=== PATIENT | male | born 1930 | race Caucasian/White ===

== ENCOUNTER 2017-12-30 14:32 | Outpatient (CLI) | payer MEDICARE, BC | END 2017-12-30 23:59 | disposition home or self-care (01) | LOC: RAD 14:32 | PROVIDERS: ATTEND Otolaryngology | DX: R13.12 Dysphagia, oropharyngeal phase (principal); R13.14 Dysphagia, pharyngoesophageal phase; K21.9 Gastro-esophageal reflux disease without esophagitis; R49.0 Dysphonia; Z87.891 Personal history of nicotine dependence | CPT/HCPCS: 74230 ==

== ENCOUNTER 2021-09-19 11:56 | Inpatient (IN) | payer MEDICARE, BC ==
[~2021-09-19] VITALS: Ht 185.4 cm; Wt 81.8 kg
[2021-09-19 12:26] LABS: BASOPHILS # (AUTO) 0.1 X10'3 (0-0.2); BASOPHILS % (AUTO) 0.4 % (0-1); EOSINOPHILS # (AUTO) 0.1 X10'3 (0-0.9); EOSINOPHILS % (AUTO) 0.4 % (0-6); HEMATOCRIT 45.5 % (42.0-52.0); HEMOGLOBIN 15.2 g/dl (14.0-17.9); LYMPHOCYTES % (AUTO) 5.8 % (21-51); MEAN CORPUSCULAR HGB CONC 33.4 g/dL (33.0-36.5); MEAN CORPUSCULAR VOLUME 92.7 FL (78-98); MEAN PLATELET VOLUME 7.9 FL (7.4-10.4); MONOCYTES # (AUTO) 1.3 X10'3 (0-0.9); MONOCYTES % (AUTO) 7.7 % (2-12); NEUTROPHILS # (AUTO) 14.7 X10'3 (1.8-7.7); NEUTROPHILS % (AUTO) 85.7 % (42-75); PLATELET COUNT 215 X10'3 (140-440); RED BLOOD COUNT 4.91 X10'6 (4.70-6.10); RED CELL DISTRIBUTION WIDTH 14.9 % (11.5-14.5); WHITE BLOOD COUNT 17.1 X10'3 (4.5-11.0)
[2021-09-19 12:46] LABS: ALANINE AMINOTRANSFERASE 26 U/L (12-78); ALBUMIN 2.7 G/DL (3.4-5.0); ALBUMIN/GLOBULIN RATIO 0.6 (1.1-1.5); ALKALINE PHOSPHATASE 225 IU/L (46-116); ANION GAP 9 (8-16); ASPARTATE AMINO TRANSFERASE 36 U/L (10-37); BILIRUBIN,TOTAL 1.7 MG/DL (0.1-1.0); BLOOD UREA NITROGEN 30 MG/DL (7-18); BUN/CREATININE RATIO 28.3 (5.4-32.0); CALCIUM 9.4 MG/DL (8.5-10.1); CHLORIDE 110 MMOL/L (99-107); CREATININE 1.06 MG/DL (0.60-1.10); GLUCOSE 121 MG/DL (70-104); SODIUM 147 MMOL/L (135-145); TOTAL CARBON DIOXIDE 28.1 MMOL/L (24-32); TOTAL PROTEIN 7.5 G/DL (6.4-8.2); eGFR 66 ML/MIN
[2021-09-19 12:49] LABS: POTASSIUM 3.7 MMOL/L (3.5-5.1)
[2021-09-19] MEDS ORDERED: normal saline 1000ML IV soln IV ONE (12:50)
[2021-09-19] MEDS ORDERED: CefTRIAXone 2gm/D5W 50ml BAG 50 ML IV ONE (12:50)
[2021-09-19] MEDS ORDERED: OLANZapine **IM** 10 mg inj. IM ONE (13:30)
[2021-09-19] MEDS ORDERED: morphine 4 MG/ML inj SYRINge IV ONE (13:55)
--- NOTE | 2021-09-19 14:02 | NUR ---
Patient refused his Morphine ivp, stated he denied any pain. Brown jcainto made aware
[2021-09-19 14:03] LABS: CLARITY,URINE CLOUDY (Clear); COLOR,URINE YELLOW (Yellow); GLUCOSE, URINE NEGATIVE (Neg); KETONES,URINE NEGATIVE (Neg); LEUKOCYTE ESTERASE ,URINE TRACE (Neg); NITRITES, URINE NEGATIVE (Neg); OCCULT BLOOD,URINE TRACE-INTACT (Neg); PROTEIN,URINE TRACE mg/dl (Neg); UROBILINOGEN,URINE >=8.0 E.U/dL (0.2-1.0)
[2021-09-19 14:13] LABS: UA COLLECTION TYPE STRAIGHT CATH
[2021-09-19] MEDS ORDERED: magnesium 4gm in 100ml NS 100 ML IV PRN (14:25)
[2021-09-19] MEDS ORDERED: magnesium 2GM in 50ml NS 50 ML IV PRN (14:25)
[2021-09-19] MEDS ORDERED: acetaminophen 325mg tablet PO PRN (14:25)
[2021-09-19] MEDS ORDERED: ondansetron/PF 4mg/2ml inj IV PRN (14:25)
[2021-09-19] MEDS ORDERED: docusate sod 100mg capsule PO PRN (14:25)
[2021-09-19] MEDS ORDERED: POTASSIUM BICARB 20meq eff tab 20 MEQ TABLET.EFF PO PRN (14:25)
[2021-09-19 14:28] LABS: WBC,URINE TNTC /HPF (0-4)
[2021-09-19 14:29] LABS: BACTERIA,URINE 4+ /HPF (Neg); RBC,URINE 0-2 /HPF (0-2); WBC CLUMPS,URINE FEW /HPF (NEGATIVE)
[2021-09-19 14:30] LABS: SQUAMOUS EPITHELIAL CELL,UR FEW /LPF (FEW)
[2021-09-19] MEDS ORDERED: ziprasidone IM 20mg inj **IM only IM ONE (17:20)
[2021-09-19] MEDS: normal saline 1000ml 1,000 ML IV SCH (17:31)
[2021-09-19] MEDS ORDERED: quetiapine 100mg tablet PO STA (18:18)
[2021-09-19] MEDS: K and/or MAG REPLACEMENT MC SCH (20:00)
[2021-09-19] MEDS: enoxaparin 40mg/0.4ml syringe SQ SCH (20:29)
--- NOTE | 2021-09-19 22:08 | NUR ---
PT. O2 IS RANGING FROM 90-92%. TRIED TO APPLY NC, BUT PT. IS REFUSING. WILL TRY AGAIN.
[2021-09-20] MEDS: normal saline 1000ml 1,000 ML IV SCH ×2 (03:25→20:00)
--- NOTE | 2021-09-20 06:40 | NUR ---
Received report from Anushka in the ER.
[2021-09-20 06:52] VITALS: BP 124/70
--- NOTE | 2021-09-20 07:00 | NUR ---
Patient refuses MRSA swab. Patient is becoming agresive and agitated when MRSA swab was attempted.
[2021-09-20 07:58] LABS: BASOPHILS % (AUTO) 0.3 % (0-1); EOSINOPHILS % (AUTO) 0.3 % (0-6); HEMATOCRIT 44.7 % (42.0-52.0); HEMOGLOBIN 14.8 g/dl (14.0-17.9); LYMPHOCYTES # (AUTO) 0.7 X10'3 (1.1-4.8); LYMPHOCYTES % (AUTO) 5.3 % (21-51); MEAN CORPUSCULAR HEMOGLOBIN 30.6 PG (27.0-31.0); MEAN CORPUSCULAR VOLUME 92.7 FL (78-98); MONOCYTES # (AUTO) 0.9 X10'3 (0-0.9); MONOCYTES % (AUTO) 6.9 % (2-12); NEUTROPHILS # (AUTO) 11.9 X10'3 (1.8-7.7); NEUTROPHILS % (AUTO) 87.2 % (42-75); PLATELET COUNT 216 X10'3 (140-440); RED BLOOD COUNT 4.82 X10'6 (4.70-6.10); RED CELL DISTRIBUTION WIDTH 14.9 % (11.5-14.5); WHITE BLOOD COUNT 13.6 X10'3 (4.5-11.0)
[2021-09-20] MEDS: K and/or MAG REPLACEMENT MC SCH ×2 (08:00→19:52)
[2021-09-20] MEDS ORDERED: CefTRIAXone/D5W-Rocephin 1gm 50 ML IV SCH (08:00)
[2021-09-20 08:15] LABS: ALANINE AMINOTRANSFERASE 38 U/L (12-78); ALBUMIN 2.3 G/DL (3.4-5.0); ALBUMIN/GLOBULIN RATIO 0.5 (1.1-1.5); ALKALINE PHOSPHATASE 187 IU/L (46-116); ANION GAP 10 (8-16); ASPARTATE AMINO TRANSFERASE 32 U/L (10-37); BILIRUBIN,TOTAL 1.3 MG/DL (0.1-1.0); BLOOD UREA NITROGEN 24 MG/DL (7-18); CALCIUM 8.5 MG/DL (8.5-10.1); CHLORIDE 113 MMOL/L (99-107); CREATININE 0.75 MG/DL (0.60-1.10); GLUCOSE 98 MG/DL (70-104); MAGNESIUM 1.8 MG/DL (1.5-2.4); POTASSIUM 3.1 MMOL/L (3.5-5.1); SODIUM 148 MMOL/L (135-145); TOTAL CARBON DIOXIDE 25.4 MMOL/L (24-32); TOTAL PROTEIN 6.6 G/DL (6.4-8.2); eGFR > 90 ML/MIN
[2021-09-20] MEDS ORDERED: CARB1TAB23 PO (09:08)
[2021-09-20] MEDS ORDERED: RISP2TAB85 PO (09:08)
[2021-09-20] MEDS ORDERED: ESOM40CA54 PO (09:08)
[2021-09-20] MEDS ORDERED: POTA10TA21 PO (09:08)
[2021-09-20] MEDS ORDERED: [UNRECOGNIZED DRUG - OTHER] PO (09:08)
[2021-09-20] MEDS ORDERED: HYDR12.55 PO ×2 (09:08→15:24)
[2021-09-20] MEDS ORDERED: QUET-1 PO (09:08)
[2021-09-20] MEDS ORDERED: RISP0.5T65 PO (09:08)
[2021-09-20] MEDS ORDERED: ESZO2TAB31 PO (09:08)
[2021-09-20] MEDS: POTASSIUM BICARB 20meq eff tab 20 MEQ TABLET.EFF PO PRN ×2 (09:37→15:50)
[2021-09-20 10:00] VITALS: BP 95/59
--- NOTE | 2021-09-20 11:26 | NUR ---
Spoke with Britt Andrwes the patient's daughter who was able to provide some history for DART and also some history of the current illness. She states that patient has moved into [facility] 3 weeks ago (moved in August 31). On September 06 he started having "headaches and just being off the wall" according to Britt. He was sent to [facility] on September 06 then he was released because [facility] could not find anything, he went back to [facility] on September 16 then he was released. He came to [facility] this morning. The MD he currently sees (dr. Morel) told the family that he does have an infection. Daughter stated MD told her he has "yellow belly". Britt Hirsch daughter Antionette Torrey and LILLY
[2021-09-20] MEDS ORDERED: POTA-280 PO (15:15)
[2021-09-20] MEDS ORDERED: RISP1TAB98 PO (15:22)
[2021-09-20] MEDS ORDERED: ESZO1TAB13 PO (15:26)
[2021-09-20] MEDS: potassium CL 10mEq/100ml bag 100 ML IV PRN ×2 (16:01→20:27)
[2021-09-20 18:00] VITALS: BP 110/61
--- NOTE | 2021-09-20 18:40 | NUR ---
Britt the patient's daughter requested that we call [facility] to make sure that the list of medications we have is the same with what they have. 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 Contact persons there are Rosita and Marisa .
--- NOTE | 2021-09-20 18:45 | NUR ---
Patient in room ORTHO 4022. I have received report from GURPREET Hollis and had the opportunity to ask questions and assume patient care.
--- NOTE | 2021-09-20 19:08 | NUR ---
Problems reprioritized. Patient report given, questions answered & plan of care reviewed with HUSSAIN Flowers.
[2021-09-20] MEDS: enoxaparin 40mg/0.4ml syringe SQ SCH (20:00)
[2021-09-20] MEDS: carbidoba-levodopa 25-100mg tablet PO SCH (20:46)
[2021-09-20] MEDS: zolpidem 5mg tablet PO SCH (20:49)
[2021-09-20] MEDS: quetiapine 100mg tablet PO SCH (20:49)
[2021-09-20] MEDS: risperiDONE 0.5mg tablet PO SCH (20:51)
--- NOTE | 2021-09-20 21:00 | NUR ---
Problems reprioritized. Patient report given, questions answered & plan of care reviewed with GURPREET Garcia.
[2021-09-20 22:00] VITALS: BP 84/42
[2021-09-20 22:15] VITALS: BP 86/52
--- NOTE | 2021-09-20 22:19 | NUR ---
86/52 on left arm and lower on right arm so giving a 250ml bolus of saline per protocol.
[2021-09-20] MEDS ORDERED: normal saline 250ml IV soln 250 ML IV ONE (22:20)
[2021-09-20 22:30] VITALS: BP 92/57
--- NOTE | 2021-09-20 23:20 | NUR ---
Assumed care of patient at this time.
[2021-09-21] MEDS: potassium CL 10mEq/100ml bag 100 ML IV PRN ×8 (00:05→23:22)
[2021-09-21 02:00] VITALS: BP 154/66
[2021-09-21] MEDS: normal saline 1000ml 1,000 ML IV SCH ×3 (05:44→23:22)
[2021-09-21 06:00] VITALS: BP 118/76
--- NOTE | 2021-09-21 06:10 | NUR ---
Problems reprioritized. Patient report given, questions answered & plan of care reviewed with Adry Reyna RN.
--- NOTE | 2021-09-21 06:30 | NUR ---
Patient in room ORTHO 4022. I have received report from Radha and had the opportunity to ask questions and assume patient care.
[2021-09-21] MEDS: K and/or MAG REPLACEMENT MC SCH ×2 (08:00→20:00)
[2021-09-21 09:32] LABS: BASOPHILS # (AUTO) 0.1 X10'3 (0-0.2); BASOPHILS % (AUTO) 0.4 % (0-1); EOSINOPHILS # (AUTO) 0.2 X10'3 (0-0.9); EOSINOPHILS % (AUTO) 1.4 % (0-6); HEMATOCRIT 45.4 % (42.0-52.0); LYMPHOCYTES # (AUTO) 0.8 X10'3 (1.1-4.8); LYMPHOCYTES % (AUTO) 6.3 % (21-51); MEAN CORPUSCULAR VOLUME 93.8 FL (78-98); MEAN PLATELET VOLUME 8.3 FL (7.4-10.4); MONOCYTES # (AUTO) 0.9 X10'3 (0-0.9); MONOCYTES % (AUTO) 7.2 % (2-12); NEUTROPHILS # (AUTO) 10.3 X10'3 (1.8-7.7); NEUTROPHILS % (AUTO) 84.7 % (42-75); PLATELET COUNT 207 X10'3 (140-440); RED BLOOD COUNT 4.84 X10'6 (4.70-6.10); RED CELL DISTRIBUTION WIDTH 14.7 % (11.5-14.5); WHITE BLOOD COUNT 12.2 X10'3 (4.5-11.0)
[2021-09-21] MEDS: pantoprazole 40mg Tablet.DR PO SCH (09:48)
[2021-09-21] MEDS: carbidoba-levodopa 25-100mg tablet PO SCH ×2 (09:48→20:05)
[2021-09-21] MEDS: risperiDONE 0.5mg tablet PO SCH ×2 (09:48→20:06)
[2021-09-21 09:50] LABS: ALANINE AMINOTRANSFERASE 10 U/L (12-78); ALBUMIN 2.3 G/DL (3.4-5.0); ALBUMIN/GLOBULIN RATIO 0.5 (1.1-1.5); ALKALINE PHOSPHATASE 171 IU/L (46-116); ANION GAP 9 (8-16); ASPARTATE AMINO TRANSFERASE 32 U/L (10-37); BILIRUBIN,TOTAL 1.3 MG/DL (0.1-1.0); BLOOD UREA NITROGEN 19 MG/DL (7-18); BUN/CREATININE RATIO 28.4 (5.4-32.0); CALCIUM 8.6 MG/DL (8.5-10.1); CHLORIDE 114 MMOL/L (99-107); CREATININE 0.67 MG/DL (0.60-1.10); GLUCOSE 109 MG/DL (70-104); MAGNESIUM 1.7 MG/DL (1.5-2.4); POTASSIUM 3.4 MMOL/L (3.5-5.1); SODIUM 145 MMOL/L (135-145); TOTAL CARBON DIOXIDE 21.7 MMOL/L (24-32); TOTAL PROTEIN 6.5 G/DL (6.4-8.2); eGFR > 90 ML/MIN
[2021-09-21] MEDS: levoFLOXACIN-Levaquin 500mg/D5 100 ML IV SCH (10:05)
[2021-09-21 18:00] VITALS: BP 135/72
--- NOTE | 2021-09-21 18:30 | NUR ---
Problems reprioritized. Patient report given, questions answered & plan of care reviewed with Reyna.
[2021-09-21] MEDS: quetiapine 100mg tablet PO SCH (20:05)
[2021-09-21] MEDS: zolpidem 5mg tablet PO SCH (20:05)
[2021-09-21] MEDS: tamsulosin 0.4mg capsule PO SCH (20:06)
[2021-09-21] MEDS: enoxaparin 40mg/0.4ml syringe SQ SCH (20:06)
[2021-09-21 22:00] VITALS: BP 112/70
[2021-09-22 06:05] LABS: BASOPHILS % (AUTO) 0.4 % (0-1); EOSINOPHILS # (AUTO) 0.2 X10'3 (0-0.9); EOSINOPHILS % (AUTO) 2.2 % (0-6); HEMOGLOBIN 13.8 g/dl (14.0-17.9); LYMPHOCYTES # (AUTO) 1.2 X10'3 (1.1-4.8); LYMPHOCYTES % (AUTO) 12.6 % (21-51); MEAN CORPUSCULAR HEMOGLOBIN 31.5 PG (27.0-31.0); MEAN CORPUSCULAR HGB CONC 33.6 g/dL (33.0-36.5); MEAN CORPUSCULAR VOLUME 93.6 FL (78-98); MEAN PLATELET VOLUME 8.1 FL (7.4-10.4); MONOCYTES # (AUTO) 0.8 X10'3 (0-0.9); MONOCYTES % (AUTO) 8.5 % (2-12); NEUTROPHILS % (AUTO) 76.3 % (42-75); PLATELET COUNT 207 X10'3 (140-440); RED BLOOD COUNT 4.38 X10'6 (4.70-6.10); RED CELL DISTRIBUTION WIDTH 14.9 % (11.5-14.5); WHITE BLOOD COUNT 9.2 X10'3 (4.5-11.0)
--- NOTE | 2021-09-22 06:30 | NUR ---
Patient in room ORTHO 4022. I have received report from Reyna and had the opportunity to ask questions and assume patient care.
--- NOTE | 2021-09-22 06:35 | NUR ---
Problems reprioritized. Patient report given, questions answered & plan of care reviewed with Adry VÁZQUEZ.
[2021-09-22 06:42] LABS: ALANINE AMINOTRANSFERASE 9 U/L (12-78); ALBUMIN 2.1 G/DL (3.4-5.0); ALBUMIN/GLOBULIN RATIO 0.5 (1.1-1.5); ALKALINE PHOSPHATASE 167 IU/L (46-116); ANION GAP 7 (8-16); ASPARTATE AMINO TRANSFERASE 33 U/L (10-37); BILIRUBIN,TOTAL 1.1 MG/DL (0.1-1.0); BLOOD UREA NITROGEN 18 MG/DL (7-18); BUN/CREATININE RATIO 24.7 (5.4-32.0); CALCIUM 8.3 MG/DL (8.5-10.1); CHLORIDE 116 MMOL/L (99-107); CREATININE 0.73 MG/DL (0.60-1.10); GLUCOSE 81 MG/DL (70-104); MAGNESIUM 1.8 MG/DL (1.5-2.4); POTASSIUM 3.6 MMOL/L (3.5-5.1); SODIUM 146 MMOL/L (135-145); TOTAL CARBON DIOXIDE 23.5 MMOL/L (24-32); eGFR > 90 ML/MIN
[2021-09-22 06:43] VITALS: BP 105/75
[2021-09-22] MEDS: K and/or MAG REPLACEMENT MC SCH ×2 (08:00→20:00)
--- NOTE | 2021-09-22 08:09 | NUR ---
Initial: Pt admitted w/ sepsis secondary to UTI and metabolic encephalopathy per EMR. Currently on MM5 diet per [employer] P[employer] recs, w/ avg intake 50% x6 meals documented to be receiving max assistance w/ meals. Pt could benefit from Ensure Enlive TID to assist w/ meeting increased protein needs. Pt noted w/ wounds r/t R buttock friction shearing though no staging per WOC. LB 09/21. Will continue to monitor. Recs; 1. Continue MM5 diet per [employer] PERSON recs; assist w/ meals 2. Ensure Enlive TID; pending MD verification 3. Bowel care per rx 4. Scaled wts Addendum: 09/22/21 at [address] Amended: Links added.
[2021-09-22 10:00] VITALS: BP 93/68
[2021-09-22] MEDS: pantoprazole 40mg Tablet.DR PO SCH (11:09)
[2021-09-22] MEDS: risperiDONE 0.5mg tablet PO SCH ×2 (11:09→19:54)
[2021-09-22] MEDS: levoFLOXACIN-Levaquin 500mg/D5 100 ML IV SCH (11:09)
[2021-09-22] MEDS: carbidoba-levodopa 25-100mg tablet PO SCH ×2 (11:10→19:54)
[2021-09-22] MEDS: lactose-reduced food (Ensure Enlive) - 237ml bottle PO SCH ×2 (13:00→17:48)
[2021-09-22] MEDS: normal saline 1000ml 1,000 ML IV SCH (17:25)
[2021-09-22 18:00] VITALS: BP 121/78
--- NOTE | 2021-09-22 18:21 | NUR ---
Problems reprioritized. Patient report given, questions answered & plan of care reviewed with
[2021-09-22] MEDS: zolpidem 5mg tablet PO SCH (19:54)
[2021-09-22] MEDS: quetiapine 100mg tablet PO SCH (19:54)
[2021-09-22] MEDS: tamsulosin 0.4mg capsule PO SCH (19:54)
[2021-09-22] MEDS: enoxaparin 40mg/0.4ml syringe SQ SCH (19:54)
[2021-09-22 22:00] VITALS: BP 102/62
[2021-09-23 05:42] LABS: BASOPHILS % (AUTO) 0.6 % (0-1); EOSINOPHILS # (AUTO) 0.2 X10'3 (0-0.9); EOSINOPHILS % (AUTO) 2.5 % (0-6); HEMATOCRIT 39.2 % (42.0-52.0); HEMOGLOBIN 13.2 g/dl (14.0-17.9); LYMPHOCYTES # (AUTO) 0.9 X10'3 (1.1-4.8); LYMPHOCYTES % (AUTO) 10.3 % (21-51); MEAN CORPUSCULAR HEMOGLOBIN 31.1 PG (27.0-31.0); MEAN CORPUSCULAR HGB CONC 33.6 g/dL (33.0-36.5); MEAN CORPUSCULAR VOLUME 92.4 FL (78-98); MEAN PLATELET VOLUME 8.2 FL (7.4-10.4); MONOCYTES # (AUTO) 0.9 X10'3 (0-0.9); MONOCYTES % (AUTO) 10.1 % (2-12); NEUTROPHILS # (AUTO) 6.5 X10'3 (1.8-7.7); NEUTROPHILS % (AUTO) 76.5 % (42-75); PLATELET COUNT 202 X10'3 (140-440); RED BLOOD COUNT 4.24 X10'6 (4.70-6.10); RED CELL DISTRIBUTION WIDTH 14.9 % (11.5-14.5); WHITE BLOOD COUNT 8.6 X10'3 (4.5-11.0)
[2021-09-23 05:52] LABS: ALANINE AMINOTRANSFERASE 11 U/L (12-78); ALBUMIN 1.8 G/DL (3.4-5.0); ALBUMIN/GLOBULIN RATIO 0.5 (1.1-1.5); ALKALINE PHOSPHATASE 159 IU/L (46-116); ANION GAP 10 (8-16); ASPARTATE AMINO TRANSFERASE 28 U/L (10-37); BILIRUBIN,TOTAL 1.2 MG/DL (0.1-1.0); BLOOD UREA NITROGEN 14 MG/DL (7-18); BUN/CREATININE RATIO 20.6 (5.4-32.0); CALCIUM 8.2 MG/DL (8.5-10.1); CHLORIDE 113 MMOL/L (99-107); CREATININE 0.68 MG/DL (0.60-1.10); GLUCOSE 82 MG/DL (70-104); MAGNESIUM 1.6 MG/DL (1.5-2.4); POTASSIUM 3.1 MMOL/L (3.5-5.1); SODIUM 146 MMOL/L (135-145); TOTAL CARBON DIOXIDE 22.6 MMOL/L (24-32); TOTAL PROTEIN 5.6 G/DL (6.4-8.2); eGFR > 90 ML/MIN
[2021-09-23] MEDS: normal saline 1000ml 1,000 ML IV SCH (05:57)
--- NOTE | 2021-09-23 06:36 | NUR ---
Problems reprioritized. Patient report given, questions answered & plan of care reviewed with GURPREET REBOLLEDO.
[2021-09-23 07:00] VITALS: BP 118/75
[2021-09-23] MEDS: K and/or MAG REPLACEMENT MC SCH (08:00)
[2021-09-23] MEDS: pantoprazole 40mg Tablet.DR PO SCH (09:40)
[2021-09-23] MEDS: levoFLOXACIN-Levaquin 500mg/D5 100 ML IV SCH (09:40)
[2021-09-23] MEDS: risperiDONE 0.5mg tablet PO SCH (09:41)
[2021-09-23] MEDS: carbidoba-levodopa 25-100mg tablet PO SCH (09:41)
--- NOTE | 2021-09-23 14:56 | NUR ---
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
== END 2021-09-23 14:40 | disposition home or self-care (01) | DRG 871 ==
LOC: ER 11:56 → ED HOLD 14:32 → ORTHO 4S 09-20 06:40
PROVIDERS: ADMIT Family Medicine; ATTEND Family Medicine
DX: A41.9 Sepsis, unspecified organism (principal); G93.41 Metabolic encephalopathy; N39.0 Urinary tract infection, site not specified; E87.0 Hyperosmolality and hypernatremia; E87.6 Hypokalemia; B96.5 Pseudomonas (aeruginosa) (mallei) (pseudomallei) as the cause of diseases classified elsewhere; G20 Parkinson's disease; F02.80 Dementia in other diseases classified elsewhere, unspecified severity, without behavioral disturbance, psychotic disturbance, mood disturbance, and anxiety; Z66 Do not resuscitate; Z96.659 Presence of unspecified artificial knee joint; K21.9 Gastro-esophageal reflux disease without esophagitis; M19.90 Unspecified osteoarthritis, unspecified site; Z87.442 Personal history of urinary calculi; Z78.1 Physical restraint status
CPT/HCPCS: 36415; 80053; 81001; 83605; 83735; 84132; 84145; 84153; 85025; 87040; 87077; 87088; 87186; 92508; 92616; 96365; 96372; 97110; 97161; 97530; 99285; A4349; A4615; A6212; A6213; C1758; G0378; J0696; J1650; J1956; J3480; J3486; J3490; J7030; J7040; J7050